=== PATIENT | female | born 1940 | race Caucasian/White ===

== ENCOUNTER 2022-04-11 09:23 | Emergency (ER) | payer OTHER ==
[~2022-04-11] VITALS: Ht 162.6 cm; Wt 54.4 kg
[2022-04-11] MEDS ORDERED: LIPITOR40 MG (09:27)
[2022-04-11] MEDS ORDERED: TENORMIN25 MG (09:27)
== END 2022-04-11 16:16 | disposition home or self-care (01) ==
LOC: ER 09:23
DX: S00.93XA Contusion of unspecified part of head, initial encounter (principal); W18.39XA Other fall on same level, initial encounter; Y93.89 Activity, other specified; Y92.89 Other specified places as the place of occurrence of the external cause; Y99.9 Unspecified external cause status